=== PATIENT | female | born 1985 | race Caucasian/White ===

== ENCOUNTER → 2019-08-01 15:01 | Outpatient (BNVA) | payer MEDICAID, SELFPAY | PROVIDERS: Family Provider Family Medicine; Visit Provider Internal Medicine | DX: R76.8 Other specified abnormal immunological findings in serum (principal); B19.20 Unspecified viral hepatitis C without hepatic coma | CPT/HCPCS: 80053; 82105; 85025; 87522; 87902 ==

== ENCOUNTER 2019-08-22 07:29 | Outpatient (CLI) | payer MEDICAID, SELFPAY ==
--- NOTE | 2019-08-22 07:15 | US_ITS ---
WS: [id number] ULTRASOUND ABDOMEN CLINICAL INFORMATION: HEPATITIS C COMPARISON: None. FINDINGS: Liver Size: Normal. Craniocaudal length: 11.5 cm. Echogenicity: Coarse echogenicity Surface nodularity: None. Mass (size and location): None. Bile ducts Intrahepatic ducts: Normal. Common bile duct diameter: 0.2 cm. Gallbladder Normal. Gallstones: None. Gallbladder sludge: None. Gallbladder wall thickening: None. Pericholecystic fluid: None. Sonographic Arnold sign: Absent. Pancreas Normal as visualized. Right kidney: Normal. Hydronephrosis: None. Size: 10.4 cm x 5.0 cm x 4.7 cm Abdominal aorta and IVC Visualized portions are normal. Ascites: None. US/US liver [id number] IMPRESSION: 1. Diffuse fatty infiltration liver. Coarse echogenicity consistent with histo ry of hepatitis 2. Normal gallbladder. 3. No hydronephrosis right kidney.
== END 2019-08-22 07:30 | disposition home or self-care (01) ==
LOC: RAD 07:34
PROVIDERS: PCP Family Medicine; Visit Provider Internal Medicine
DX: B19.20 Unspecified viral hepatitis C without hepatic coma (principal); K76.0 Fatty (change of) liver, not elsewhere classified
CPT/HCPCS: 76705

== ENCOUNTER → 2020-01-21 16:37 | Outpatient (BNVA) | payer MEDICAID, SELFPAY | PROVIDERS: PCP Family Medicine; Visit Provider Internal Medicine | DX: B18.2 Chronic viral hepatitis C (principal); B19.20 Unspecified viral hepatitis C without hepatic coma | CPT/HCPCS: 87522 ==

== ENCOUNTER 2021-02-23 07:56 | Outpatient (CLI) | payer BC, MEDICAID, SELFPAY ==
--- NOTE | 2021-02-23 08:01 | MM_ITS ---
WS: [id number] BILATERAL DIGITAL SCREENING MAMMOGRAPHY WITH CAD CLINICAL INFORMATION: SCREENING HISTORY: Screening mammogram. No current complaints. COMPARISON: None. TECHNIQUE: Bilateral CC and MLO views. FINDINGS: Scattered fibroglandular densities bilaterally. Incidental intramammary lymph nodes. Lucent centered calcification left breast. No suspicious focal mass, asymmetry, calcifications, or architectural dist ortion. No evidence of malignancy. MM/[id number] IMPRESSION: BI-RADS: 2-Benign FOLLOW UP: 1 Year Follow-up Recommend return to annual screening mammography.
== END 2021-02-23 07:57 | disposition home or self-care (01) ==
LOC: RADSHAW 07:59
PROVIDERS: PCP Family Medicine; Visit Provider Family Medicine
DX: Z12.31 Encounter for screening mammogram for malignant neoplasm of breast (principal)
CPT/HCPCS: 77067

== ENCOUNTER 2022-01-15 23:06 | Emergency (ER) | payer BC, MEDICAID, SELFPAY ==
[2022-01-15 23:11] VITALS: PULSE 105; RESP 20; TEMP 36.7; O2SAT 100; BMI 39.4
--- NOTE | 2022-01-15 23:36 | ED.C_ITS ---
HPI - Psych General: Chief Complaint: Psychiatric Symptoms Stated Complaint: MHE Time Seen by Provider: 01/15/22 23:08 Source: patient and police Mode of arrival: other (police) Limitations: no limitations History of Present Illness: 37-year-old female is brought here by police patient states she was drinking tonight went to her appointment at [facility] intoxicated got into argument with her boss. Please were called police is here that brought her here they state that they did arrested her and brought her to the station where she was threatening to burn the sales representative sales manager house down along with slit in his throat they state that they do not believe she is in her right mind and want her to have a psych evaluation patient here is answering all my questions appropriately she states that she was just intoxicated and angry. Associated symptoms: Deny depression Review of Systems Const: Denies: fever(s), chills, body aches or change in appetite Eyes: Denies: blurry vision or eye discomfort ENMT: Denies: throat pain or dental pain Card: Denies: chest pain Resp: Denies: dyspnea GI: Denies: abdominal pain, nausea, vomiting or diarrhea : Denies: dysuria Musc: Denies: neck pain or back pain Skin/Breast: Denies: rash Neuro: Denies: headache(s) Psych: Denies: depression Bronson/Lymph: Denies: easy bruising All/Imm: Denies: urticaria PFSH ED PFSH: Medical History Hepatitis C Social History Smoking and tobacco status: current every day smoker Alcohol intake: former Marital status: Number of children: 4 service: No History of recent travel: No Current gender identity: Female Physical Exam Const: COMMON NORMALS: no acute distress, patient oriented x3 and healthy appearing HENMT: COMMON NORMALS: normocephalic and atraumatic HEAD & SCALP: nor mocephalic and atraumatic Eye: COMMON NORMALS: Equal, round and reactive pupils present and EOMs intact bilaterally PUPIL: Yes Equal, round and reactive pupils present Neck/C-Spine: COMMON NORMALS: full ROM and supple Chest: COMMONS NORMALS: normal inspection of the chest and normal palpation of entire chest wall Resp: COMMON NORMALS: normal respiratory effort, No retractions, No use of accessory muscles and clear to auscultation bilaterally AUSCULTATION: clear to auscultation bilaterally Cardio: COMMON NORMALS: regular rate, regular rhythm and No murmurs present (Cardio) RATE: regular rate RHYTHM: regular rhythm GI: COMMON NORMALS: Normal to inspection, nondistended, normoactive bowel sounds present, Soft to palpation, non-tender and no masses PALPATION: Yes Soft to palpation Extremity: COMMON NORMALS: normal to inspection and full ROM Neuro: COMMON NORMALS: patient oriented x3, moves all extremities and no focal motor deficits Psych: COMMON NORMALS: mental status grossly normal, Normal thought process present and cooperative THOUGHT PROCESS: Normal thought process present Skin: COMMON NORMALS: no rashes or lesions noted and no wounds GENERAL SKIN EXAM: no rashes or lesions noted Course Vital Signs: Vital signs: Vital Signs Temperature 98.1 F 01/15/22 23:11 Pulse Rate 105 H 01/15/22 23:11 Respiratory Rate 20 H 01/15/22 23:11 Pulse Oximetry 100 01/15/22 23:11 MDM - Psych Medical Decision Making Patient presents with alcohol tox Acacian she was brought in by police for disorderly does conduct. Patient here has been cooperative she is not suicidal not homicidal she is able answer all my questions appropriately had her evaluated by Dr. Henry psychiatry who agrees she is not a threat to herself or others she is stable for discharge. Lab Data 01/15/22 23:22 01/15/22 23:22 Laboratory Results WBC 14.9 10^3/uL (4.0-10.0) H 01/15/22 23:22 RBC 5.09 10^6/uL (4.1-5.3) 01/15/22 23:22 Hgb 15.3 g/dL (11.5-15.3) 01/15/22 23:22 Hct 46.1 % (37.0-47.0) 01/15/22 23:22 MCV 90.6 fl (81-99) 01/15/22 23:22 MCH 30.1 pg (28.0-34.0) 01/15/22 23:22 MCHC 33.2 g/dL (30.0-36.0) 01/15/22 23:22 RDW 12.0 % (12.1-15.1) L 01/15/22 23:22 Plt Count 380 10^3/cmm (130-400) 01/15/22 23:22 MPV 9.9 fL (7.4-10.4) 01/15/22 23:22 Neut % (Auto) 67.5 % 01/15/22 23:22 Lymph % (Auto) 24.2 % 01/15/22 23:22 [place] % (Auto) 6.6 % 01/15/22 23:22 Eos % (Auto) 0.5 % 01/15/22 23:22 Baso % (Auto) 0.5 % 01/15/22 23:22 Neut # (Auto) 10.08 10^3/uL (1.8-7.7) H 01/15/22 23:22 Lymph # (Auto) 3.6 10^3/uL (0.8-4.8) 01/15/22 23:22 [place] # (Auto) 1.0 10^3/uL (0.2-0.9) H 01/15/22 23:22 Eos # (Auto) 0.1 10^3/uL (0.0-0.8) 01/15/22 23:22 Baso # (Auto) 0.1 10^3/uL (0.0-0.1) 01/15/22 23:22 Nucleated RBC % (auto) 0 % 01/15/22 23:22 Nucleated RBCs # 0.0 /100WBC 01/15/22 23:22 Sodium 142 mmol/L (136-145) 01/15/22 23:22 Potassium 4.6 mmol/L (3.5-5.1) 01/15/22 23:22 Chloride 104 mmol/L (98-107) 01/15/22 23:22 Carbon Dioxide 27 mmol/L (22-29) 01/15/22 23:22 Anion Gap 15.6 (5-19) 01/15/22 23:22 BUN 17 mg/dL (6-20) 01/15/22 23:22 Creatinine 0.8 mg/dL (0.5-0.9) 01/15/22 23:22 GFR Calculation 81.6 mL/min (90-130) L 01/15/22 23:22 Glucose 128 mg/dL (65-115) H 01/15/22 23:22 Calculated Osmolality 297 mOsm/kg (285-295) H 01/15/22 23:22 Calcium 9.0 mg/dL (8.5-10.5) 01/15/22 23:22 Total Bilirubin 0.2 mg/dL (0.15-1.2) 01/15/22 23:22 AST 18 U/L (0-32) 01/15/22 23:22 ALT 16 U/L (0-33) 01/15/22 23:22 Alkaline Phosphatase 89 U/L (35-105) 01/15/22 23:22 Total Protein 8.2 g/dL (6.6-8.7) 01/15/22 23:22 Albumin 4.7 g/dL (3.5-5.2) 01/15/22 23:22 Globulin 3.5 g/dL (1.3-4.6) 01/15/22 23:22 HCG, Qual Negative (Negative) 01/15/22 23:29 Salicylates < 0.3 mg/dL (3-10) L 01/15/22 23:22 Acetaminophen < 5.0 ug/mL (10-30) L 01/15/22 23:22 Ethyl Alcohol 182 mg/dL (0-10) H 01/15/22 23:22 Discharge Plan Discharge Patient Disposition: Home Clinical Impression: Alcohol intoxication Condition: Stable Prescriptions: No Action paroxetine HCl 20 mg tablet 20 mg PO DAILY tramadol 50 mg tablet 50 mg PO BID PRN clindamycin HCl 300 mg capsule 300 mg PO TID venlafaxine 75 mg tablet 150 mg PO DAILY Discharge Orders: Discharge ED (Routine); Ordered 01/16/22 Ordered By: Yoni Ro Referrals: Shyam Pritchett MD [Primary Care Provider] - 1-3 days Discharge Diet: Advance as tolerated Discharge Activity: Resume usual activity Patient Instructions: Alcohol Intoxication (ED) Coding Level of Care Code ED Certified Court Interpreter for Janusz Fwd Exam Comprehensive
[2022-01-15 23:38] LABS: Basophils # 0.1 10^3/uL (0.0-0.1); Basophils % 0.5 %; Eosinophils # 0.1 10^3/uL (0.0-0.8); Eosinophils % 0.5 %; Hematocrit 46.1 % (37.0-47.0); Hemoglobin 15.3 g/dL (11.5-15.3); Lymphocytes # 3.6 10^3/uL (0.8-4.8); Lymphocytes % 24.2 %; Mean Corpuscular HGB Conc 33.2 g/dL (30.0-36.0); Mean Corpuscular Hemoglobin 30.1 pg (28.0-34.0); Mean Corpuscular Volume 90.6 fl (81-99); Mean Platelet Volume 9.9 fL (7.4-10.4); Monocytes % 6.6 %; Neutrophils # 10.08 10^3/uL (1.8-7.7); Neutrophils % 67.5 %; Nucleated Red Blood Cells % 0 %; Platelet Count 380 10^3/cmm (130-400); Red Blood Count 5.09 10^6/uL (4.1-5.3); White Blood Count 14.9 10^3/uL (4.0-10.0)
[2022-01-15 23:49] LABS: HCG Qualitative Urine. Negative (Negative)
[2022-01-15 23:55] LABS: Alanine Aminotransferase 16 U/L (0-33); Albumin Level 4.7 g/dL (3.5-5.2); Alcohol Level 182 mg/dL (0-10); Alkaline Phosphatase 89 U/L (35-105); Anion Gap 15.6 (5-19); Aspartate Amino Transferase 18 U/L (0-32); Blood Urea Nitrogen 17 mg/dL (6-20); Carbon Dioxide 27 mmol/L (22-29); Chloride 104 mmol/L (98-107); Globulin 3.5 g/dL (1.3-4.6); Glomerular Filtration Rate 81.6 mL/min (90-130); Glucose 128 mg/dL (65-115); Osmolality Calculated 297 mOsm/kg (285-295); Potassium 4.6 mmol/L (3.5-5.1); Sodium 142 mmol/L (136-145); Total Bilirubin 0.2 mg/dL (0.15-1.2); Total Protein 8.2 g/dL (6.6-8.7)
[2022-01-16] LABS: Acetaminophen < 5.0 ug/mL (10-30); Salicylate < 0.3 mg/dL (3-10)
[2022-01-16 00:54] VITALS: BP 131/90; PULSE 90; RESP 18; O2SAT 94
[2022-01-16 01:46] LABS: Amphetamines Screen Urine Negative (Negative); Barbiturates Screen Urine Negative (Negative); Benzodiazepines Screen Urine Positive (Negative); Cocaine Screen Urine Negative (Negative); Opiate Screen Urine Negative (Negative); PCP Screen Urine Negative (Negative); THC Screen Urine Negative (Negative)
== END 2022-01-16 00:55 | disposition home or self-care (01) ==
PROVIDERS: Emergency Provider Emergency Medicine; PCP Family Medicine
DX: F10.129 Alcohol abuse with intoxication, unspecified (principal); Y90.6 Blood alcohol level of 120-199 mg/100 ml; Z86.19 Personal history of other infectious and parasitic diseases; F17.210 Nicotine dependence, cigarettes, uncomplicated
CPT/HCPCS: 80053; 80306; 80307; 81025; 85025; 99283